=== PATIENT | male | born 1990 | race American Indian/Alaskan Native ===

== ENCOUNTER 2017-02-28 20:13 | Emergency (ER) | payer SELFPAY ==
[2017-02-28 20:28] VITALS: BP 110/80
[2017-02-28] MEDS ORDERED: BOOSTRIX IM ONE (23:50)
--- NOTE | 2017-02-28 23:56 | Emergency Department Report ---
Upper Extremity - HPI Chief Complaint: Extremity Injury, Upper Stated Complaint: LEFT FINGER INJURY Time Seen by Provider: 02/28/17 23:38 Upper Extremity: Left Index Finger Occurred When: Today Mechanism: Crush Symptoms: Yes Pain with Movement, Yes Limited Range of Movement, Yes Swelling, Yes Bruising/Ecchymosis, No Deformity, No Numbness Other History: Patient comes in the ER today for second evaluation of a crushing injury to his left second finger. Patient states that this happened while he is a work today. 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 Patient states that he externally got his finger smashed between some equipment. He saw the [employer] doctor and had an x-ray and was told that he had a fracture in the end of his finger. He was placed in a 1 inch aluminum/foam finger guard to the end of his finger and prescribed a naproxen. Patient comes in tonight for second evaluation as he states that it is still hurting very bad and he does not think the splint is helping. Patient further notes that they did not give him a tetanus shot today. ED Review of Systems ROS: Stated complaint: LEFT FINGER INJURY Other details as noted in HPI Constitutional: denies: chills, fever Eyes: denies: eye pain, eye discharge, vision change ENT: denies: ear pain, throat pain Respiratory: denies: cough, shortness of breath, wheezing Cardiovascular: denies: chest pain, palpitations Endocrine: no symptoms reported Gastrointestinal: denies: abdominal pain, nausea, diarrhea Genitourinary: denies: urgency, dysuria Musculoskeletal: joint swelling, arthralgia. denies: back pain Skin: denies: rash, lesions Neurological: denies: headache, weakness, paresthesias Psychiatric: denies: anxiety, depression Hematological/Lymphatic: denies: easy bleeding, easy bruising ED Past Medical Hx - Past Medical History Previous Medical History?: No - Surgical History Past Surgical History?: Yes Additional Surgical History: RIGHT KNEE - Social History Smoking Status: Current Every Day Smoker Substance Use Type: None - Medications Home Medications: Home Medications Medication Instructions Recorded Confirmed Last Taken Type Acetaminophen/Codeine [Tylenol 1 tab PO Q6H PRN #20 tab 02/28/17 Unknown Rx /Codeine # 3 tab] Cephalexin [Keflex] 500 mg PO TID #30 capsule 02/28/17 Unknown Rx Upper Extremity Exam - Exam General: Vital signs noted. No distress. Alert and acting appropriately. Head and Torso: No HEENT Abnormality, No Neck Tenderness, No Chest/Lungs Abnormality, No Abdominal Tenderness, No Back Tenderness Shoulder Exam: Yes Normal Range of Motion in Shoulder, No Shoulder Tenderness, No Clavicle Tenderness, No Shoulder Deformity, No AC Joint Tenderness Arm Exam: No Arm/Humerus Tenderness, No Arm Deformity Elbow: No Elbow Tenderness, No Normal Range of Motion in Elbow, No Elbow Deformity Forearm: No Forearm Tenderness, No Forearm Deformity, No Pain with Pronation, No Pain with Supination Wrist: Yes Normal ROM in Wrist, No Wrist Tenderness, No Wrist Deformity, No Snuffbox Tenderness, No Pain with Axial Thumb Compression Hand: Yes Digit Tenderness (left second distal finger from PIP and distally. Subungual hematoma noted to left second finger with dried blood surrounding nail. No active bleeding on examination.), No Hand Tenderness, No Hand Deformity, No Normal ROM in Digit(s), No Digit(s) Deformity, No Tendon Dysfunction CMS Exam: Yes Normal Distal Pulses, Yes Normal Capillary Refill, Yes Normal Distal Sensation ED Course Vital Signs 02/28/17 20:23 Temperature 98.6 F Pulse Rate 64 Respiratory 20 Rate Blood Pressure 110/80 O2 Sat by Pulse 100 Oximetry ED Medical Decision Making - Medical Decision Making There is no deformity to patient's finger. Patient does have obvious signs of crushing injury to his left second finger. I am taking patient at his word that he has a fracture in the end of his finger. Since it will not change the outcome of my treatment plan, I will not repeat x-ray at this time. Patient placed in a forefinger splint as well as given tetanus immunization here in the ER today. Patient is to continue the previously prescribed naproxen for inflammation and I will prescribe some pain medications accordingly. Patient will be referred to orthopedics for further evaluation and restricted on his work duties. Patient is in agreement with treatment plan and patient is stable for discharge. Critical care attestation.: If time is entered above; I have spent that time in minutes in the direct care of this critically ill patient, excluding procedure time. ED Disposition Clinical Impression: Crushing injury of left index finger, Subungual hematoma of digit of hand Disposition: TO HOME OR SELFCARE Is pt being admited?: No Does the pt Need Aspirin: No Condition: Good Instructions: Subungual Hematoma (ED), Finger Fracture (ED) Prescriptions: Acetaminophen/Codeine [Tylenol /Codeine # 3 tab] 1 tab PO Q6H PRN #20 tab PRN Reason: Pain Cephalexin [Keflex] 500 mg PO TID #30 capsule Referrals: PRIMARY CAREMD [Primary Care Provider] - 3-5 Days TIMOTHY ARELLANO MD [Staff Physician] - 3-5 Days Forms: Work/School Release Form(ED) Time of Disposition: 00:01
== END 2017-03-01 00:17 | disposition home or self-care (01) ==
LOC: ED 20:13
DX: S60.022A Contusion of left index finger without damage to nail, initial encounter (principal); W22.8XXA Striking against or struck by other objects, initial encounter; Y93.9 Activity, unspecified; Y92.9 Unspecified place or not applicable; Y99.9 Unspecified external cause status; F17.200 Nicotine dependence, unspecified, uncomplicated
CPT/HCPCS: 90471; 90715; 99282